=== PATIENT | female | born 1970 | race Hispanic/Latino ===

== ENCOUNTER 2017-04-01 20:52 | Emergency (ER) | payer OTHER ==
[~2017-04-01] VITALS: Ht 160 cm; Wt 63.6 kg
[~2017-04-01 20:52] MED LIST: HYDR-3479 PO; IBUP800T28 PO; TRAZ-115 PO
[2017-04-01 20:55] VITALS: BP 139/94; PULSE 122; RESP 19; O2SAT 100
[2017-04-01] MEDS ORDERED: KEP500TA PO (20:58)
--- NOTE | 2017-04-01 21:02 | ED.REPORT ---
HPI-Seizure Date of Service Apr 01, 2017 ED Provider: Enio Esparza DO Pt is a 46 year old female with a history of seizures who presents to the ED via EMS after having a seizure prior to arrival. She denies tongue pain, shoulder pain, and missed medication dosage. Pt denies any other symptoms. Pt is unable to recall the seizure or what she was doing prior to the seizure. Nursing Notes Stated Complaint: SEIZURE Chief Complaint: Seizure Nursing Notes Reviewed: Yes Allergies: Coded Allergies: No Known Allergies (Unverified , 04/01/17) Scheduled Levetiracetam (Keppra) 500 Mg Tablet 500 MG PO BID Trazodone (Trazodone) 50 Mg Tablet 25-50 MG PO HS Scheduled PRN Hydrocodone/Acetaminophen (Vicodin 5-300 mg Tablet) 1 Each Tablet 1-2 EACH PO Q6 PRN PRN For Pain Ibuprofen (Ibuprofen) 800 Mg Tablet 800 MG PO QID PRN PRN For Pain General Time Seen by Provider: 21:02 Chief Complaint Chief Complaint: Seizure, generalized Hx Obtained From: EMS Arrived By: Ambulance Onset Occurred: Just prior to arrival Symptom Duration: Duration unknown Severity: Current: No pain currently Severity: Maximum: No pain Recent Healthcare: No recent doctor visit, No recent hospitalization Similar Sx Previous: Yes Past Medical History Past Medical History IBS H. pylori Seizures Reports: GERD, Denies: Congestive heart failure, Diabetes mellitus, Hypertension Past Surgical History Reports: , Cholecystectomy Smoking History Unknown if Ever Smoker Social History Alcohol Use: "Social" Other Social History: Good social support, Local resident Ambulatory Status Independent Review of Systems Constitutional: Denies: Fever Respiratory: Denies: Non-productive cough, Shortness of breath Musculoskeletal: Denies: Extremity pain Neurologic: Reports: Seizure Complete sys rev & neg: except as marked. Physical Exam Initial Vital Signs Vital Signs (First) Date Time Temp Pulse Resp B/P Pulse Ox O2 Delivery O2 Flow Rate FiO2 04/01/17 20:55 37.1 122 19 139/94 100 Room Air Initial VS: Reviewed Head / Eyes: Atraumatic, Normocephalic, PERRL ENT: Mucous membranes moist, Conjunctiva normal, No scleral icterus Abdomen / GI: Soft, Non-tender Extremities: Vascular intact, Neuro intact Skin: Warm, Dry, No cyanosis Psychiatric: Mood/affect normal, Behavior normal General/Constitutional: Awake, Alert, Cooperative, Not toxic appearing Neck: Atraumatic, Full range of motion Respiratory / Chest: Atraumatic, Breath sounds NL, Breath sounds = bilat Cardiovascular: Heart rate NL, Regular rhythm, Heart sounds NL Heart Rate / Rhythm: Positive: Tachycardia Neurologic: Oriented X3, Speech NL, No motor deficits, No sensory deficits Slow to respond; She is not sure what medication she is taking. Interpretation & Diagnostics Lab Results Interpretation Result Diagram: 04/01/17212904/01/172129 Test 04/01/17 21:30 White Blood Count 11.4th/mm3 (3.8-10.1) Red Blood Count 4.92mil/mm3 (3.90-5.20) Hemoglobin 14.6g/dL (12.0-15.6) Hematocrit 42.7% (35.0-46.0) Mean Corpuscular Volume 86.8fL (81-100) Mean Corpuscular Hemoglobin 29.7pg (27.0-35.0) Mean Corpuscular Hemoglobin Concent 34.2% (32.0-37.0) Red Cell Distribution Width 13.0% (12.3-15.4) Platelet Count 213bil/L (150-400) Neutrophils (%) (Auto) 54.9% (40-74) Lymphocytes (%) (Auto) 36.3% (14-46) Monocytes (%) (Auto) 7.0% (4-12) Eosinophils (%) (Auto) 1.2% (0-5) Basophils (%) (Auto) 0.3% (0-3) Sodium Level 137mEq/L (134-144) Potassium Level 3.7mEq/L (3.5-5.2) Chloride Level 99mEq/L (97-108) Carbon Dioxide Level 21mmol/L (18-29) Blood Urea Nitrogen 18mg/dL (6-24) Creatinine 0.80mg/dL (0.57-1.00) Estimat Glomerular Filtration Rate 111mL/min (>59) Glucose Level 105mg/dL (60-99) Calcium Level 9.1mg/dL (8.5-10.1) Total Bilirubin 0.2mg/dL (0.0-1.2) Aspartate Amino Transf (AST/SGOT) 17U/L (0-50) Alanine Aminotransferase (ALT/SGPT) 15U/L (0-32) Alkaline Phosphatase 46U/L (25-150) Total Protein 7.7g/dL (6.4-8.4) Albumin 4.4g/dL (3.4-5.0) Lab values outside NL range: no clinical significance. ECG Interpretation Time: 21:37 Interpreted by: ED physician Normal ECG Interpretation: Normal ECG w/ rate of... (102) Re-Eval/Medical Decision Med Decision/Clinical Course Keesha is now awake alert oriented 4. Her vital signs are normal. Her heart rate has come down. She has been infused the Keppra. She has no complaints. Normal neurologic examination. No headache. She has not had another seizure. She is ready be discharged home. I will have hercall her neurologist first thing in the morning and set up a follow-up appointment and let her know that she had another seizure. Source of Hx: Old records Re-Evaluation/Progress : Time of Eval: 23:46 )( Re-Eval Neurologic Exam: Pt is back to baseline, Oriented X3, CN II - XII intact, Speech normal Patient Status: Condition resolved Evaluation: Capillary refill improved, Capillary refill normal, Normal peripheral pulses, Extremities warm, Lungs clear, Abdomen soft/non-tender, Mental status normal, Neurologic nonfocal Re-Evaluation/Progress Note: Pt rechecked. Informed pt of plan for discharge. Pt understands and agrees with plan for discharge. F/U instructions and RTER warnings given. All questions addressed. Counseled Regarding: Diagnosis, Lab results, Need for follow-up, When/why to return to ED, Road Roller Operator Discharge & Departure Shift Change Sign-Out Response to Therapy: Improved Impression: Primary Impression: Seizure Disposition: Home Discharge Condition All VS Reviewed: Yes Condition: Stable Patient Instructions: Generalized Tonic Clonic Seizures (ED) Additional Instructions: Evidently you had another seizure tonight. Take your medication as prescribed. Call your neurologist and primary care physician in the morning for follow- up. If driving breakthrough seizure she may need to be on more medication or second medication. Do not drive. Follow your seizure precautions. Do not participate in any activities that put you or others at risk if you have another seizure. Do not drive tonight. Do not drive until cleared by neurology. Return if any problems or any new worsening symptoms. Referrals: Didi Dejesus (PCP) Sasha Umanzor MD Attestation Portions of this note were transcribed by Radha Serrano. I, Dr. Esparza personally performed the history, physical exam and medical decision-making; I reviewed and confirmed the accuracy of the information in the transcribed note. Signed by: Abe Valencia, 04/02/17 and 00:50. Enio Esparza DO Apr 01, 2017 21:02 Radha Maldonado Apr 02, 2017 00:34
[2017-04-01] MEDS ORDERED: 0.9% Sodium Chloride 1,000 ML IV ONE (21:10)
[2017-04-01 22:06] VITALS: BP 112/65; PULSE 89; RESP 16; O2SAT 97
[2017-04-01 22:24] LABS: BASOPHILS % (AUTO) 0.3 % (0-3); EOSINOPHILS % (AUTO) 1.2 % (0-5); Mean Corpuscular Hemoglobin 29.7 pg (27.0-35.0); Mean Corpuscular Volume 86.8 fL (81-100); NEUTROPHILS % (AUTO) 54.9 % (40-74); Platelet Count 213 bil/L (150-400)
== END 2017-04-02 00:37 | disposition home or self-care (01) ==
LOC: EDSEX 20:52 → EDBD 20:52 → SED 20:52
DX: G40.909 Epilepsy, unspecified, not intractable, without status epilepticus (principal); K21.9 Gastro-esophageal reflux disease without esophagitis
CPT/HCPCS: 36415; 80053; 85025; 93005; 96361; 96374; 99284; J1953; J7030